=== PATIENT | male | born 1980 | race Caucasian/White ===

== ENCOUNTER 2021-12-11 15:03 | Emergency (ER) | payer OTHER ==
[~2021-12-11] VITALS: Ht 177.8 cm; Wt 113.4 kg
[2021-12-11 15:57] LABS: BASOPHILS # (AUTO) 0.1 (0.0-0.1); EOSINOPHILS # (AUTO) 0.1 (0.0-0.4); EOSINOPHILS % 0.7 % (0.0-6.0); HEMOGLOBIN 16.6 g/dL (14.0-18.0); LYMPHOCYTES # (AUTO) 1.9 (1.0-3.2); LYMPHOCYTES % 26.3 % (18.0-39.1); MEAN CORPUSCULAR HEMOGLOBIN 27.9 pg (28-32); MEAN CORPUSCULAR HGB CONC 35.3 g/dL (31-35); MEAN CORPUSCULAR VOLUME 78.9 fL (81-99); MONOCYTES # (AUTO) 0.5 (0.2-0.8); MONOCYTES % 7.4 % (4.4-11.3); NEUTROPHILS # (AUTO) 4.7 (2.1-6.9); NEUTROPHILS % 64.2 % (38.7-80.0); PLATELET COUNT 232 x10e3/uL (140-360); RED BLOOD COUNT 5.96 x10e6/uL (4.3-5.7); RED CELL DISTRIBUTION WIDTH 12.5 % (11.7-14.4)
[2021-12-11 16:15] LABS: ALANINE AMINOTRANSFERASE 62 IU/L (0-55); ALBUMIN 4.5 g/dL (3.5-5.0); ALBUMIN/GLOBULIN RATIO 1.4 (0.8-2.0); ALKALINE PHOSPHATASE 54 IU/L (40-150); BLOOD UREA NITROGEN 15 mg/dL (7-26); BUN/CREATININE RATIO 16 (6-25); CALCIUM 9.4 mg/dL (8.4-10.2); CARBON DIOXIDE 21 mmol/L (22-29); CHLORIDE 105 mmol/L (98-107); CREATINE KINASE 123 IU/L (30-200); CREATININE, SERUM 0.93 mg/dL (0.72-1.25); GLUCOSE 105 mg/dL (74-118); SODIUM 139 mmol/L (136-145)
[2021-12-11] MEDS ORDERED: ASPIRIN 325 MG TAB PO ONE (16:15)
[2021-12-11 18:20] VITALS: BP 133/87
== END 2021-12-11 18:21 | disposition home or self-care (01) ==
LOC: ER 15:13
DX: R07.9 Chest pain, unspecified (principal)
CPT/HCPCS: 36415; 71046; 80053; 82550; 82553; 84484; 85025; 93005; 99284

== ENCOUNTER 2024-03-18 18:47 | Emergency (ER) | payer OTHER ==
[~2024-03-18] VITALS: Ht 182.9 cm; Wt 112.0 kg
[2024-03-18] MEDS ORDERED: FLOMAX0.4 MG PO (22:06)
[2024-03-18] MEDS ORDERED: BACTRIM DS TAB1 EACH PO (22:07)
[2024-03-18] MEDS ORDERED: CELEBREX200 MG PO (22:08)
[2024-03-18] MEDS: KETOROLAC TROMETHAMINE 30 MG/ML VIAL IV STA (22:25)
[2024-03-18] MEDS: SODIUM CHLORIDE 0.9% 500ML 500 ML IV ONE (22:27)
[2024-03-18 23:23] VITALS: PULSE 70; RESP 17; TEMP 97.3
[2024-03-18 23:29] VITALS: BP 143/84; PULSE 70; RESP 17; TEMP 97.3; O2SAT 98
== END 2024-03-18 23:33 | disposition home or self-care (01) ==
LOC: FSED 19:30
DX: R10.31 Right lower quadrant pain (principal); N20.0 Calculus of kidney; K80.20 Calculus of gallbladder without cholecystitis without obstruction; R16.0 Hepatomegaly, not elsewhere classified; K57.90 Diverticulosis of intestine, part unspecified, without perforation or abscess without bleeding
CPT/HCPCS: 74176; 80053; 85025; 99284; J1885; J7040